=== PATIENT | female | born 1985 | race Caucasian/White ===

== ENCOUNTER 2016-12-28 19:01 | Emergency (ER) | payer SELFPAY ==
[~2016-12-28] VITALS: Ht 152.4 cm; Wt 44.8 kg
[2016-12-28 19:53] LABS: HEMOGLOBIN 12.3 g/dL (11.7-16.4)
[2016-12-28 20:06] LABS: ASPARTATE AMINO TRANSFERASE 18 U/L (15-37); BLOOD UREA NITROGEN 9 mg/dL (7-18)
[2016-12-28 20:35] LABS: PATH.CAST-FLAG NOT PRESENT; SPERM-FLAG NOT PRESENT; SRC-FLAG NOT PRESENT; XTAL-FLAG NOT PRESENT; YLC-FLAG NOT PRESENT
[2016-12-28 21:26] VITALS: BP 129/89
== END 2016-12-28 21:29 | disposition home or self-care (01) ==
LOC: ED 21:23
DX: A60.00 Herpesviral infection of urogenital system, unspecified (principal); F12.10 Cannabis abuse, uncomplicated; Z98.890 Other specified postprocedural states
CPT/HCPCS: 36415; 80053; 81001; 83690; 84703; 85025; 87086; 87210; 87491; 87591; 87808; 99284

== ENCOUNTER 2018-12-01 18:39 | Emergency (ER) | payer OTHER ==
[~2018-12-01] VITALS: Ht 152.4 cm; Wt 45.0 kg
--- NOTE | 2018-12-01 19:21 | NUR ---
GLORY RN: [facility]
[2018-12-01 19:36] LABS: MICROSCOPIC INDICATED
[2018-12-01 19:37] LABS: CULTURE INDICATED? YES
[2018-12-01 19:57] LABS: BASOPHILS # (AUTO) 0.03 x10^3/uL (0-0.1); BASOPHILS % (AUTO) 1 % (0-1); EOSINOPHILS # (AUTO) 0.01 x10^3/uL (0-0.4); EOSINOPHILS % (AUTO) 0 % (1-7); LYMPHOCYTES # (AUTO) 1.32 x10^3/uL (1-3.4); LYMPHOCYTES % (AUTO) 21 % (22-44); MD NO; MEAN CORPUSCULAR HEMOGLOBIN 30.5 pg (27.0-34.8); MEAN CORPUSCULAR HGB CONC 34.4 g/dL (32.4-35.8); MEAN CORPUSCULAR VOLUME 88.9 fL (80-100); MEAN PLATELET VOLUME 8.1 fL (7.4-10.4); MONOCYTES % (AUTO) 11 % (2-9); NEUTROPHILS # (AUTO) 4.29 x10^3/uL (1.8-6.8); NEUTROPHILS % (AUTO) 68 % (42-75); PLATELET COUNT 247 x10^3/uL (130-400); RED BLOOD COUNT 4.33 x10^6/uL (3.82-5.3); RED CELL DISTRIBUTION WIDTH 13.4 % (9.6-15.2)
[2018-12-01 20:06] LABS: ALBUMIN 4.3 g/dL (3.4-5.0); ANION GAP 4 mmol/L (5-15); CALCIUM 8.6 mg/dL (8.5-10.1); CHLORIDE 107 mmol/L (98-107)
[2018-12-01 20:14] LABS: ALANINE AMINOTRANSFERASE 27 U/L (12-78); ALKALINE PHOSPHATASE 58 U/L (45-117); BILIRUBIN,TOTAL 0.8 mg/dL (0.2-1.0); CREATININE 0.65 mg/dL (0.55-1.02); TOTAL PROTEIN 8.4 g/dL (6.4-8.2)
--- NOTE | 2018-12-01 21:40 | NUR ---
FROM LOBBY TO ROOM
--- NOTE | 2018-12-01 21:49 | NUR ---
PT TO ED FOR SWOLLEN, PAINFUL LYMPH NODES IN GROIN SINCE MAY, WORSE X3 DAYS. HX OF ENDOMETRIAL SURGERY IN MAY. CONSTANT MALODOROUS DISCHARGE SINCE THEN. CONNECTED TO MONITORS. VSS. NO NEEDS AT THIS TIME. US, UA AND LABS COMPLETED. AWAITING MD ASSESSMENT.
--- NOTE | 2018-12-01 22:04 | NUR ---
REPORT FROM BRYAN BOJORQUEZ. PT RESTING ON KAYLEEN SOLANO NOTED. PELVIC SET UP. AWAITING ERP EVAL
--- NOTE | 2018-12-01 22:11 | NUR ---
ERP AT BEDSIDE FOR INITIAL ASSESSMENT
[2018-12-01] MEDS ORDERED: AZITHROMYCIN 250 MG TABLET PO STA (22:22)
[2018-12-01] MEDS ORDERED: KETOROLAC 30 MG/1 ML IM ONE (22:30)
[2018-12-01] MEDS ORDERED: CEFTRIAXONE 250 MG IM ONE (22:30)
[2018-12-01] MEDS ORDERED: KETOROLAC 30 MG/1 ML ONE (22:35)
[2018-12-01] MEDS ORDERED: AZITHROMYCIN 250 MG TABLET ONE (22:35)
[2018-12-01] MEDS ORDERED: CEFTRIAXONE 250 MG ONE (22:35)
[2018-12-01 22:39] LABS: CLUE CELLS NONE SEEN (NONE SEEN); WET PREP WBCS MANY (FEW)
[2018-12-01 22:46] VITALS: BP 101/70
--- NOTE | 2018-12-01 23:21 | NUR ---
NO S/S OF ABX RXN NOTED. DC EDUCAITON PROVIDED, PT DEMONSTRATES UNDERSTANDING. PT AMBULATED STEADILY TO DC WITH RN
[2018-12-01] MEDS ORDERED: metroNIDAZOLE 500 MG TABLET ONE (23:23)
--- NOTE | 2018-12-01 23:29 | NUR ---
PT AWARE OF OBS PERIOD AFTER ABX ADMIN. DESPITE EDUCATION, PT ELECTING TO LEAVE. PT IS AWARE OF S/S OF ABX RXN AND AGREES TO RETURN WITH S/S.
[2018-12-01] MEDS ORDERED: metroNIDAZOLE 500 MG TABLET PO ONE (23:30)
== END 2018-12-01 23:31 | disposition home or self-care (01) ==
LOC: ED 23:22
DX: N73.0 Acute parametritis and pelvic cellulitis (principal); N89.8 Other specified noninflammatory disorders of vagina; A59.01 Trichomonal vulvovaginitis
CPT/HCPCS: 36415; 76830; 80053; 81001; 84703; 85025; 87086; 87210; 87491; 87591; 87808; 96372; 99284; J0696; J1885

== ENCOUNTER 2019-08-29 17:06 | Emergency (ER) | payer OTHER ==
[~2019-08-29] VITALS: Ht 152.4 cm; Wt 44.9 kg
[2019-08-29 17:12] VITALS: BP 117/62
[2019-08-29] MEDS ORDERED: NEOSPORIN OINT. PKT 1 PACKET ONE (18:17)
[2019-08-29] MEDS ORDERED: LIDOCAINE-MPF 1%, 5ML ONE (18:28)
[2019-08-29] MEDS ORDERED: DIAZEPAM 5 MG TABLET ONE (18:50)
[2019-08-29] MEDS ORDERED: DIAZEPAM 5 MG TABLET PO ONE (19:00)
[2019-08-29] MEDS ORDERED: LIDOCAINE 1%, 10ML INFIL ONE (19:00)
== END 2019-08-29 19:18 | disposition home or self-care (01) ==
LOC: ED 19:12
DX: S61.401A Unspecified open wound of right hand, initial encounter (principal); X58.XXXA Exposure to other specified factors, initial encounter; Y93.89 Activity, other specified; Y92.009 Unspecified place in unspecified non-institutional (private) residence as the place of occurrence of the external cause; Y99.8 Other external cause status
CPT/HCPCS: 99283; J3490